=== PATIENT | male | born 1930 | race Hispanic/Latino ===

== ENCOUNTER 2017-08-26 09:11 | Outpatient (CLI) | payer MEDICARE ==
--- NOTE | 2017-08-26 13:46 | MRI ---
MRI LUMBAR SPINE WITHOUT CONTRAST: HISTORY: Back pain x4 to 5 years. Lumbar radiculopathy. COMPARISON: None. FINDINGS: There is appropriate T1 marrow signal intensity throughout the majority of the lumbar spine. There is intrinsic T1 and T2 hypointensity at the L3 and L4 level, compatible with vertebroplasty change. There is significant edema at the L3-L4 disk space, without significant loss of disk space height. Additional edematous change at the T12-L1 disk space level is suggested. Intrinsic T1 and T2 hyperintensity of T11 and T12, likely due to vertebral body hemangioma. There is atherosclerosis and mild prominence of the aorta, incompletely evaluated. Symmetric signal intensity of the psoas muscles. T2 hyperintensity in the posterior right renal cortex and left renal pelvis may represent cortical a nd parapelvic cysts. The conus medullaris terminates at the superior endplate of L1. T12-L1: Adequate disk hydration. No significant central canal stenosis or foraminal narrowing. L1-L2: Disk desiccation with mild loss of disk space height. No significant central canal stenosis . The neural foramina are patent. Mild to moderate bilateral foraminal narrowing. L2-L3: Disk desiccation with mild loss of disk space height. No significant central canal stenosis . Mild bilateral foraminal narrowing. Significant edema of the disk space. No high grade central canal stenosis. Mild to moderate bilateral foraminal narrowing. L4-L5: Disk desiccation with mild loss of disk space height. There is a generalized disk bulge, li gamentum flavum thickening, and facet hypertrophy that results in mild to moderate central canal antione nosis. Narrowing of both subarticular zones with partial obscuration of the bilateral traversing L5 nerve roots. Moderate bilateral foraminal narrowing. L5-S1: No high grade central canal stenosis. Moderate right and mild to moderate left foraminal na rrowing. Incidental vertebroplasty change at T10 is suspected. IMPRESSION: 1. 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 2. Degenerative changes of the lumbar spine as detailed above. POS: [facility]
== END 2017-08-26 09:12 | disposition home or self-care (01) ==
LOC: MRI 09:11
PROVIDERS: ATTEND Anesthesiology Pain Medicine
DX: M47.26 Other spondylosis with radiculopathy, lumbar region (principal); Z98.890 Other specified postprocedural states
CPT/HCPCS: 72148

== ENCOUNTER 2017-12-09 09:36 | Outpatient (CLI) | payer MEDICARE | END 2017-12-09 09:37 | disposition home or self-care (01) | LOC: BICMRI 09:36 | PROVIDERS: ATTEND Anesthesiology Pain Medicine | DX: S32.000A Wedge compression fracture of unspecified lumbar vertebra, initial encounter for closed fracture (principal); M47.816 Spondylosis without myelopathy or radiculopathy, lumbar region; M99.53 Intervertebral disc stenosis of neural canal of lumbar region; Z98.890 Other specified postprocedural states | CPT/HCPCS: 72148 ==

== ENCOUNTER 2019-01-11 07:25 | Outpatient (CLI) | payer MEDICARE ==
--- NOTE | 2019-01-11 09:11 | MRI ---
MRI LUMBAR SPINE WITHOUT COTNRAST: INDICATION: History of compression fracture of L5. COMPARISON: MRI lumbar spine dated 12/09/2017. FINDINGS: There are some mild Modic end plate degenerative changes seen at L4-5. No definite acute fracture i s seen involving the L5 vertebral level. There is stable compression abnormality and vertebroplasty change at L3 and L4 when compared to the prior dated 12/09/2017. Conus is seen to terminate at approx imately L1. There is a small hemangioma again seen within T11 and T12. A right-sided renal cyst is again seen off the superior pole of the right kidney. At L5-S1, there is a stable broad-based disk-osteophyte complex inducing stable moderate bilateral ne ural foraminal narrowing. At L4-5, there is a stable broad-based disk-osteophyte complex with ligamentum flavum hypertrophy and facet joint degenerative change inducing mild central canal narrowing and mild bilateral neural fora bee narrowing which is stable to the prior. At L3-4, there is a broad-based disk-osteophyte complex with facet hypertrophy inducing mild neural f oraminal narrowing, left greater than right, which is stable. At L2-3, there is a broad-based disk bulge with facet hypertrophy inducing stable mild bilateral neur al foraminal narrowing. At L1-2, there is a broad-based bulge with no appreciable central canal or neural foraminal narrowing . At T12-L1, there is no appreciable central canal or neural foraminal narrowing. IMPRESSION: 1. 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 2. 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 3. No acute compression abnormality is seen. POS: [facility]
== END 2019-01-11 07:26 | disposition home or self-care (01) ==
LOC: BICMRI 07:25
PROVIDERS: ATTEND Nurse Practitioner Family
DX: S32.059G Unspecified fracture of fifth lumbar vertebra, subsequent encounter for fracture with delayed healing (principal); M47.816 Spondylosis without myelopathy or radiculopathy, lumbar region; Z98.890 Other specified postprocedural states
CPT/HCPCS: 72148

== ENCOUNTER 2020-12-06 08:09 | Outpatient (CLI) | payer MEDICARE | END 2020-12-06 08:10 | disposition home or self-care (01) | LOC: BICRAD 08:09 | PROVIDERS: ATTEND Nurse Practitioner Family | DX: M17.0 Bilateral primary osteoarthritis of knee (principal); M25.762 Osteophyte, left knee; M25.761 Osteophyte, right knee ==

== ENCOUNTER 2021-08-23 09:49 | Outpatient (CLI) | payer MEDICARE | END 2021-08-23 09:50 | disposition home or self-care (01) | LOC: NM 09:49 | PROVIDERS: ATTEND Anesthesiology Pain Medicine | DX: M54.42 Lumbago with sciatica, left side (principal) | CPT/HCPCS: 78306; A9503 ==

== ENCOUNTER 2021-09-02 13:09 | Outpatient (CLI) | payer MEDICARE | END 2021-09-02 13:10 | disposition home or self-care (01) | LOC: BICCT 13:09 | PROVIDERS: ATTEND Anesthesiology Pain Medicine | DX: M48.062 Spinal stenosis, lumbar region with neurogenic claudication (principal); M47.816 Spondylosis without myelopathy or radiculopathy, lumbar region; M51.36 Other intervertebral disc degeneration, lumbar region; Z98.890 Other specified postprocedural states | CPT/HCPCS: 72131 ==

== ENCOUNTER 2021-10-23 08:23 | Outpatient (CLI) | payer MEDICARE | END 2021-10-23 08:24 | disposition home or self-care (01) | LOC: BICRAD 08:23 | PROVIDERS: ATTEND Anesthesiology Pain Medicine | DX: M16.11 Unilateral primary osteoarthritis, right hip (principal) ==